=== PATIENT | female | born 1955 | race Caucasian/White ===

== ENCOUNTER 2017-05-07 22:31 | Emergency (ER) | payer BC ==
[~2017-05-07] VITALS: Ht 160 cm; Wt 90.7 kg
[~2017-05-07 22:31] MED LIST: AMLODIPINE BESY10 MG PO; ANTIVERT25 MG PO; ASA81BEC PO; AUGMENTIN 875-1 EACH PO; CENTRUM SILVER1 EAC4 PO; CYMBALTA60 MG PO; IMITREX20 MG PO; LISINOPRIL5 MG PO; NORCO 5-325 TA1 EACH PO; ONDANSETRON HCL4 M2 PO; PHENERGAN 25 MG25 M1 PO; VALTREX 500 MG500 M1 PO; ZIAGEN 300 MG300 MG; ZOCOR 10 MG TAB10 MG PO; ZOFRAN ODT4 MG PO
[2017-05-08] MEDS ORDERED: NORCO 5-325 TA1 EACH PO (02:28)
[2017-05-08 02:41] VITALS: BP 118/72
== END 2017-05-08 02:42 | disposition home or self-care (01) ==
LOC: M.ERS 22:31
DX: S42.402A Unspecified fracture of lower end of left humerus, initial encounter for closed fracture (principal); S53.105A Unspecified dislocation of left ulnohumeral joint, initial encounter; E78.00 Pure hypercholesterolemia, unspecified; Z90.49 Acquired absence of other specified parts of digestive tract; Z96.653 Presence of artificial knee joint, bilateral; Z91.041 Radiographic dye allergy status; Z90.710 Acquired absence of both cervix and uterus; Z88.8 Allergy status to other drugs, medicaments and biological substances; W06.XXXA Fall from bed, initial encounter; Y93.89 Activity, other specified; Y92.091 Bathroom in other non-institutional residence as the place of occurrence of the external cause; Y99.8 Other external cause status

== ENCOUNTER 2020-03-05 17:15 | Emergency (ER) | payer BC ==
[~2020-03-05] VITALS: Ht 154.9 cm; Wt 61.2 kg
[2020-03-05] MEDS ORDERED: VITAMIN B-125000 MCG (17:39)
[2020-03-05] MEDS ORDERED: DULOXETINE HCL40 MG PO (17:39)
[2020-03-05 17:58] LABS: URINE BILIRUBIN NEGATIVE (Negative); URINE BLOOD NEGATIVE (Negative); URINE CLARITY CLEAR; URINE COLOR YELLOW; URINE GLUCOSE-RANDOM NEGATIVE (Negative); URINE KETONES NEGATIVE (Negative); URINE LEUKOCYTES-REFLEX NEGATIVE (Negative); URINE NITRITE-REFLEX NEGATIVE (Negative); URINE PROTEIN NEGATIVE (Negative); URINE UROBILINOGEN 0.2 E.U./dl (0.2-1.0)
[2020-03-05 18:11] LABS: ABSOLUTE BASOPHILS 0.1 thou/uL (0.0-0.2); ABSOLUTE EOSINOPHILS 0.3 thou/uL (0.0-0.7); ABSOLUTE LYMPHOCYTES 2.1 thou/uL (0.8-5.3); ABSOLUTE MONOCYTES 0.9 thou/uL (0.0-1.2); ABSOLUTE NEUTROPHILS 4.8 thou/uL (1.6-8.1); BASOPHILS 0.7 %; EOSINOPHILS 3.9 %; HEMATOCRIT 34.1 % (37.0-47.0); HEMOGLOBIN 11.6 gm/dL (12.0-15.0); LYMPHOCYTES 26.4 %; MCH 28.8 pg (26.0-34.0); MCHC 33.9 g/dL (28.0-37.0); MCV 84.8 fL (80.0-100.0); MONOCYTES 10.5 %; MPV 6.9 fl. (7.2-11.1); NUCLEATED RBCS 0 /100WBC; PLATELET COUNT* 278 thou/uL (150-400); POLYS 58.5 %; RBC 4.02 mil/uL (4.20-5.00); RDW-CV 13.3 % (10.5-14.5); WBC 8.1 thou/uL (4.0-11.0)
[2020-03-05 18:19] LABS: CALCIUM 8.5 mg/dL (8.5-10.1); CREATININE 0.6 mg/dL (0.6-1.3); POTASSIUM 3.1 mmol/L (3.5-5.1)
[2020-03-05 18:24] LABS: ALBUMIN 3.4 g/dL (3.4-5.0); TOTAL BILIRUBIN 0.2 mg/dL (<0.1-1.0); TOTAL PROTEIN 6.5 g/dL (6.4-8.2)
[2020-03-05 19:22] VITALS: BP 110/70
--- NOTE | 2020-03-07 13:45 | EKG ---
[place] [address] ELECTROCARDIOGRAM REPORT Name: GUERDALIN Leonela Room: [facility]#: [id number] Admission: 03/05/20 Attend Phys: Discharge: 03/05/20 Date of : 59 Date of Service: 03/05/201739 Report #: [id number] THIS REPORT FOR: //name// [facility] ED Test Date: 2020-03-05 Test Time: 17:40:33 Pat Name: LIN CROFT Department: Room: Gender: F Outsole Caser: EDGAR : 1955 Requested By: Isadora Medrano Order Number: [id number] MD: Ulysses Bowen Measurements Intervals [place] Rate: 64 P: -42 NM: 153 QRS: 17 QRSD: 114 T: 21 QT: 420 QTc: 434 Interpretive Statements Sinus rhythm Borderline intraventricular conduction delay Compared to ECG 06/19/2016 18:06:46 No significant changes Electronically Signed On 03-07-2020 13:44:45 [employer] by Ulysses Bowen [email or web address] <ELECTRONICALLY SIGNED> By: Ulysses Bowen MD, [facility] 03/07/20 1344 1740 1740 Ulysses Bowen MD, [facility] /EPI
== END 2020-03-05 19:23 | disposition home or self-care (01) ==
LOC: M.ERS 17:15
PROVIDERS: Physician Assistant
DX: D64.9 Anemia, unspecified (principal); E86.0 Dehydration; E87.6 Hypokalemia; E53.1 Pyridoxine deficiency; R94.5 Abnormal results of liver function studies; R42 Dizziness and giddiness; E78.00 Pure hypercholesterolemia, unspecified; E66.9 Obesity, unspecified; Z68.25 Body mass index [BMI] 25.0-25.9, adult; Z90.49 Acquired absence of other specified parts of digestive tract; Z90.710 Acquired absence of both cervix and uterus; Z91.041 Radiographic dye allergy status; Z88.8 Allergy status to other drugs, medicaments and biological substances